=== PATIENT | female | born 1955 | race Two or more races ===

== ENCOUNTER 2024-04-16 13:22 | Emergency (ER) | payer MEDICARE, MEDICAID ==
[2024-04-16 13:45] VITALS: O2SAT 100
--- NOTE | 2024-04-16 14:03 | ED Physician Documentation ---
History of Present Illness - Stated complaint Stated Complaint: L LEG PAIN - Chief complaint Chief Complaint: Ext Problem - History obtained from History obtained from: Patient - History of Present Illness Timing: How many days ago (4) Pain level max: 5 Pain level now: 5 - Additonal information Additional information: Patient is a 68-year-old female who presents to the emergency department with left lower extremity swelling and pain for 4 days. She reports no fall. No trauma. No change in activity. Most of the pain is behind the left knee. No history of blood clots. Took Tylenol this morning for the pain which helped. Does not want any pain medications at this time. No fevers or chills. Review of Systems Constitutional: denies: Fever, Chills GI: denies: Vomiting Skin: denies: Rash Musculoskeletal: denies: Neck pain, Back pain Neurologic: denies: Headache PD PAST MEDICAL HISTORY - Past Medical History Past Medical History: Yes - Allergies Allergies/Adverse Reactions: Allergies Allergy/AdvReac Type Severity Reaction Status Date / Time No Known Drug Allergies Allergy Verified 04/16/24 13:41 - Social History Does the pt smoke?: No Smoking Status: Never smoker Does the pt drink ETOH?: No Does the pt have substance abuse?: No - POLST Patient has POLST: No PD ED PE NORMAL - Vitals Vital signs reviewed: Yes - General General: Alert and oriented X 3, No acute distress, Well developed/nourished - HEENT HEENT: Moist mucous membranes - Cardiac Cardiac: RRR, Strong equal pulses - Respiratory Respiratory: No respiratory distress, Clear bilaterally - Abdomen Abdomen: Soft, Non tender, Non distended - Derm Derm: Warm and dry - Extremities Extremities: No calf tenderness / cord, Other ( ACL, MCL, PCL, LCL are intact. No significant joint effusion. Does have some tenderness on the posterior aspect of the knee. ) - Neuro Neuro: Alert and oriented X 3 - Psych Psych: Normal mood, Normal affect Results - Vitals Vitals: Vital Signs - 24 hr 04/16/24 13:41 Temperature 37.1 C Heart Rate 83 Respiratory 15 Rate Blood Pressure 149/78 H O2 Saturation 100 Oxygen O2 Source Room air - Rads (name of study) L knee xray Relevant Findings:: Final report received, See rad report PD Medical Decision Making - ED course Complexity details: reviewed results, re-evaluated patient, considered differential, d/w patient ED course: 68-year-old female with left knee pain. No acute findings on left knee x-ray, may have a Ambrosio's cyst versus DVT. Ultrasound ordered. At the time of signout, ultrasound is pending. See oncoming emergency department physician's note for follow-up. This document was made in part using voice recognition software. While efforts are made to proofread this document, sound alike and grammatical errors may occ ur. Departure - Departure Clinical Impression: Left knee pain Qualifiers: Chronicity: acute Qualified Code(s): M25.562 - Pain in left knee Condition: Stable Forms: PCP List
--- NOTE | 2024-04-16 14:47 | XRAY Report ---
PROCEDURE: Knee 4+V LT INDICATIONS: L knee pain TECHNIQUE: 4 views of the knee(s) were acquired. COMPARISON: None. FINDINGS: Bones: No fractures or dislocations. Moderate medial and mild lateral and patellofemoral compartment joint space narrowing and juxta-articular osteophytosis. Tricompartmental chondrocalcinosis. Mild la teral patellar tilt and subluxation on the sunrise view. No suspicious bony lesions. Soft tissues: Small knee joint effusion. No suspicious soft tissue calcifications or masses. Curvil inear calcification posterior to the distal femoral condyle and in the suprapatellar recess, best see n on lateral view. Enthesopathy at the distal insertion of the quadriceps tendon. IMPRESSION: 1.No acute bony abnormality. If there remains a high clinical concern for fracture, consider cross-se ctional imaging now. If pain persists, consider repeat x-ray in 10-14 days or cross-sectional imaging . 2.Moderate medial and mild lateral and patellofemoral compartment osteoarthritis. 3.Tricompartmental chondrocalcinosis. 4.Curvilinear calcification posterior to the distal femoral condyle, best seen on the lateral view, m ay reflect chondrocalcinosis within a tendon. Reviewed by: Diego Walker MD on 04/16/2024 1:46 PM LILY Approved by: Diego Walker MD on 04/16/2024 1:46 PM LILY Station ID: [id number]
--- NOTE | 2024-04-16 16:38 | ED Physician Documentation ---
ED Addendum - Addendum Addendum: 04/16/24 16:37 Care I received signout from Dr. Don at 3 PM shift change. See his H&P. Briefly she has knee pain and there was concern for arthritis which she certainly has on x-ray and a ultrasound prelim to me shows an effusion but no DVT or Ambrosio's cyst. I wrote prescriptions for short course of anti-inflammatories and pain medication and she also wanted antibiotics for a bladder infection feeling like she has dysuria and frequency. She appears nontoxic and well on exam. Disposition: Discharged home Condition: Stable Diagnoses: 1. Left leg pain 2. Left knee osteoarthritis with effusion Prescriptions: 1. Macrobid 100 mg p.o. twice daily #10 2. Hydrocodone/APAP 5/325 1-2 every 6 hours as needed pain #15 3. Naproxen 500 mg p.o. twice daily #8
--- NOTE | 2024-04-16 16:59 | Ultrasound Report ---
PROCEDURE: Duplex Ext Veins Left INDICATIONS: LLE swelling, pain TECHNIQUE: Real-time imaging, as well as color and pulse Doppler interrogation, were performed of the lower extr emity deep veins from the inguinal ligament to the popliteal fossa. Attempted visualization of the ca lf veins was performed. COMPARISON: None. FINDINGS: The deep veins are normally compressible, and free of intraluminal thrombus. Color and pu lse Doppler demonstrate normal phasic intraluminal flow. There is normal augmentation response to di stal compression maneuver. Left anterior knee demonstrate an anechoic fluid collection measuring 5.9 x 1.6 x 6.5 cm. There is no internal vascularity. IMPRESSION: 1.No deep venous thrombosis of the visualized lower extremity. 2.Simple fluid collection in the anterior knee measuring 5.9 x 1.6 x 6.5 cm which may represent an ev olving hematoma or seroma. Reviewed by: Diego Walker MD on 04/16/2024 3:57 PM LILY Approved by: Diego Walker MD on 04/16/2024 3:57 PM LILY Station ID: [id number]
[2024-04-16 17:00] VITALS: BP 177/82
== END 2024-04-16 16:54 | disposition home or self-care (01) ==
LOC: ED 13:22
DX: M17.12 Unilateral primary osteoarthritis, left knee (principal); M25.462 Effusion, left knee
CPT/HCPCS: 99283; 99284

== ENCOUNTER 2024-04-18 08:00 | Outpatient (CLI) | payer MEDICARE, MEDICAID ==
[2024-04-18 21:21] LABS: BILIRUBIN,URINE NEGATIVE (NEGATIVE); GLUCOSE, URINE (UA) 100 mg/dL (NEGATIVE); KETONES,URINE (UA) NEGATIVE (NEGATIVE); LEUKOCYTE ESTERASE, URINE NEGATIVE (NEGATIVE); NITRITE,URINE POSITIVE (NEGATIVE); OCCULT BLOOD,URINE NEGATIVE (NEGATIVE); PH,URINE 5.5 PH (5.0-7.5); PROTEIN,URINE NEGATIVE (NEGATIVE); UROBILINOGEN,URINE 1 (NORMAL) E.U./dL (NORMAL)
[2024-04-18 21:25] LABS: CLARITY,URINE HAZY (CLEAR)
[2024-04-18 21:26] LABS: CREATININE,URINE 96.9 mg/dL; MICROALBUM/CREATININE RATIO,UR 44.4 ug/mg (<30.0); MICROALBUMIN,URINE 4.3 mg/dL
[2024-04-18 21:38] LABS: AMORPHOUS SEDIMENT,UR Few /LPF; BACTERIA,URINE Many /HPF (None Seen); RBC,URINE 0-5 /HPF (0-5); SQUAMOUS EPITHELIAL CELL,UR FEW Squamous (<= Few)
== END 2024-04-18 23:59 | disposition home or self-care (01) ==
LOC: LAB.N 08:00
PROVIDERS: ATTEND Nurse Practitioner Family
DX: R10.30 Lower abdominal pain, unspecified (principal); R30.0 Dysuria; E11.69 Type 2 diabetes mellitus with other specified complication
CPT/HCPCS: 81001; 82043; 82570; 87086; 87181

== ENCOUNTER 2025-04-23 10:34 | Inpatient (IN) ==
[2025-04-23] MEDS: cefTRIAXone 2 GM in SODIUM CHLORIDE 0.9% MINIBAG 100 ML IV STA (10:55)
[2025-04-23] MEDS: LACTATED RINGERS 1,000 ML IV STA (11:00)
--- NOTE | 2025-04-23 11:08 | XRAY Report ---
PROCEDURE: XR Chest 1V INDICATIONS: Sepsis TECHNIQUE: One view of the chest was acquired. COMPARISON: 01/01/2025. FINDINGS: Surgical changes and devices: None. Lungs and pleura: No pleural effusions or pneumothorax. No consolidation. Mediastinum: Mediastinal contours appear normal. Heart size is normal. Bones and chest wall: No suspicious bony lesions. Overlying soft tissues appear unremarkable. IMPRESSION: No acute cardiopulmonary process. Reviewed by: Don Hidalgo MD on 04/23/2025 11:06 AM PDT Approved by: Don Hidalgo MD on 04/23/2025 11:06 AM PDT Station ID: [id number]
[2025-04-23] MEDS ORDERED: ONDANSETRON 4 MG/2 ML VIAL ONE (11:18)
[2025-04-23] MEDS: ONDANSETRON 4 MG/2 ML VIAL IVP STA ×2 (11:20→14:17)
[2025-04-23 11:25] LABS: HCT - HEMATOCRIT 35.3 % (37.0-47.0); HGB - HEMOGLOBIN 11.4 g/dL (12.0-16.0); MEAN PLATELET VOLUME 10.3 fL (7.9-10.8); NRBC ABSOLUTE COUNT (AUTO) 0.00 x10^3/uL; NUCLEATED RED BLOOD CELLS AUTO 0.0 /100WBC; PLT - PLATELET COUNT 195 10^3/uL (130-450); RED CELL DISTRIBUTION WIDTH 13.4 % (12.0-15.0)
[2025-04-23 11:38] LABS: ALT ALANINE AMINOTRANSFERASE 7.0 IU/L (10-60); AST ASPARTATE AMINOTRANSFERASE 9.0 IU/L (10-42); BUN - BLOOD UREA NITROGEN 42.0 mg/dL (6-20); CARBON DIOXIDE - CO2 23.0 mmol/L (21-32); CREATININE 1.9 mg/dL (0.6-1.3); GFR - MDRD 26.0 (>89)
[2025-04-23] MEDS: fentaNYL 100 MCG/2 ML VIAL IVP STA ×2 (11:44→14:08)
--- NOTE | 2025-04-23 12:04 | ED Physician Documentation ---
History of Present Illness Stated complaint Stated Complaint: FLANK PX/FEVER/WEAKNESS Chief complaint Chief Complaint: Abd Pain Additonal information Additional information: Patient is a 69-year-old female with history of diabetes not on insulin, hypertension, previous UTI. Patient states that for the last 4 days she has been having intermittent nausea and vomiting as well as fever symptoms. She states that she has been having significant dysuria and pain with urination as well as back pain in bilateral flanks. On arrival she states that she has had similar symptoms the past but never this severe. She is [place]-speaking primarily. Rates her pain currently as an 8 out of 10. Mildly hypotensive on arrival with systolic pressures in the 80s over 50. She did get started on 1 L of fluid in the field. She endorses a mild headache, but denies photophobia, phonophobia, neck pain. She denies any chest pain or shortness of breath. States that she is not had any abnormal vaginal bleeding, vaginal discharge, changes to stools. Review of Systems Status of ROS: See HPI Meds/Allgy Home Medications Ambulatory Orders Medication Instructions Recorded Confirmed glipizide 5 mg tablet 5 mg PO BID Diabetes #180 ta bs 10/11/24 04/23/25 hydrochlorothiazide 25 mg tablet 25 mg PO QAM #90 tabs 10/17/24 04/23/25 lisinopril 40 mg tablet See Rx Instructions .Route 0 10/17/24 04/23/25 .COMPLEX #90 tabs glipizide 2.5 mg tablet 2.5 mg PO BID Diabetes #180 tabs 01/10/25 04/23/25 levothyroxine 88 mcg tablet 88 mcg PO QDAC 04/23/25 (Levoxyl) metformin 1,000 mg tablet 1,000 mg PO DAILY 04/23/25 0 04/23/25 rosuvastatin 10 mg tablet 10 mg PO DAILY high choleste rol 04/23/25 04/23/25 Allergies Allergies Allergy/AdvReac Type Severity Reaction Status Date / Time No Known Drug Allergies Allergy Verified 04/23/25 10:52 PFS Active Problems All Active Problems (Updated 04/23/25 @ 15:45 by MARIE Calhoun) Sepsis (Acute) Acute hypotension (Acute) Pyelonephritis (Acute) Hemorrhoids (Acute) Rectal bleed (Acute) Language barrier affecting health care (Acute) Medication management (Chronic) Hypothyroid (Chronic) Hyperlipemia (Chronic) Essential hypertension (Chronic) Type 2 diabetes mellitus with other specified complication (Chronic) Medical History Medical History Cough Muscle ache Respiratory syncytial virus (RSV) Upper respiratory infection, viral Pleurisy Pneumonia Social History Social History Smoking Status: Smoker current status unk Living arrangement: At home Living Condition: With family Support Person: Yes Level: Independent Do you feel safe in your home environment?: Yes History of physical, verbal, emotional, or financial abuse?: No ETOH Use: None Substance Use: denies use POLST Patient has POLST: No Exam Exam Vital Signs: Vital Signs x48h Temp Pulse Resp BP Pulse Ox 04/23/25 15:39 39.7 C H 107 H 24 124/69 99 04/23/25 15:34 39.8 C H 109 H 25 H 123/74 99 04/23/25 15:29 39.8 C H 108 H 22 131/62 H 98 04/23/25 15:24 39.8 C H 110 H 20 144/75 H 100 04/23/25 15:19 39.7 C H 110 H 26 H 103/85 99 04/23/25 15:14 39.7 C H 117 H 26 H 127/71 96 04/23/25 15:09 39.6 C H 118 H 23 144/83 H 88 L 04/23/25 15:04 39.5 C H 126 H 15 166/114 H 98 04/23/25 15:00 39.5 C H 127 H 24 168/80 H 93 04/23/25 14:54 39.3 C H 126 H 35 H 133/111 H 88 L 04/23/25 14:50 39.1 C H 125 H 37 H 140/115 H 97 04/23/25 14:45 39.0 C H 122 H 27 H 144/94 H 96 04/23/25 14:39 38.8 C H 125 H 28 H 124/99 H 90 L 04/23/25 14:35 38.5 C H 121 H 29 H 163/88 H 85 L 04/23/25 14:30 38.3 C H 118 H 26 H 165/78 H 99 04/23/25 14:24 38.2 C H 114 H 28 H 130/91 H 97 04/23/25 14:21 38.0 C H 108 H 21 158/89 H 97 04/23/25 14:19 38.0 C H 103 H 27 H 170/96 H 98 04/23/25 14:14 37.9 C 100 24 161/88 H 97 04/23/25 14:09 37.8 C 98 22 163/115 H 97 04/23/25 14:04 37.7 C 103 H 18 80/59 L 99 04/23/25 13:59 37.5 C 94 22 157/81 H 99 04/23/25 13:53 37.5 C 93 19 139/75 H 99 04/23/25 13:49 37.5 C 93 04/23/25 13:43 37.4 C 93 24 126/75 97 04/23/25 13:38 37.3 C 88 23 128/71 99 04/23/25 13:33 37.2 C 83 26 H 111/63 97 04/23/25 13:28 36.4 C L 87 22 110/61 96 04/23/25 13:23 36.1 C L 87 22 115/67 95 04/23/25 13:18 86 26 H 131/70 H 99 04/23/25 13:13 85 21 134/69 H 95 04/23/25 13:08 85 20 151/71 H 97 04/23/25 13:06 84 20 148/98 H 99 04/23/25 13:01 88 19 131/67 H 98 04/23/25 12:56 80 21 118/65 97 04/23/25 12:56 81 24 100 04/23/25 12:53 80 15 114/62 100 04/23/25 12:48 80 20 109/58 L 100 04/23/25 12:43 82 24 106/57 L 100 04/23/25 12:38 81 24 128/68 100 04/23/25 12:33 76 23 121/65 100 04/23/25 12:28 76 22 126/69 100 04/23/25 12:23 78 20 138/73 H 98 04/23/25 12:18 79 18 174/86 H 99 04/23/25 12:13 77 22 153/74 H 99 04/23/25 12:10 76 22 90/56 L 99 Constitutional Appears tired, ill, resting in examination bed HENMT oropharynx normal Eyes PERRL, EOMs intact bilaterally, conjunctivae normal, no scleral icterus and normal visual pedraza by confrontation Neck/C-Spine cervical full ROM noted, supple and no meningeal signs Respiratory Clear to auscultation bilaterally, no increased respiratory effort Cardiovascular Heart rate in the 90s, blood pressure 80/50, normal S1-S2, no murmurs. Radial pulses 2+ and symmetric Gastrointestinal Tender to palpation in the suprapubic region as well as bilateral CVA ter ritories. No guarding, no rigidity Extremities normal to inspection Neurology nursing specialist II-XII intact and GCS 15 Psychiatry mental status grossly normal and oriented x3 Results Vitals Vitals: Vital Signs - 24 hr 04/23/25 10:34 04/23/25 10:55 04/23/25 11:12 Temperature 37.8 C Temperature Source Oral Pulse Rate 93 90 92 Respiratory Rate 25 H 17 17 Blood Pressure 80/53 L 88/56 L 86/52 L O2 Saturation 93 92 91 L O2 Source Room air Pain Intensity 8 04/23/25 11:25 04/23/25 11:40 04/23/25 11:44 Temperature Temperature Source Pulse Rate 90 83 Respiratory Rate 26 H 19 Blood Pressure 89/52 L 97/56 L O2 Saturation 90 L 96 O2 Source Pain Intensity 9 04/23/25 11:56 04/23/25 12:10 04/23/25 12:13 Temperature Temperature Source Pulse Rate 81 76 77 Respiratory Rate 19 22 22 Blood Pressure 73/51 L 90/56 L 153/74 H O2 Saturation 96 99 99 O2 Source Pain Intensity 04/23/25 12:18 04/23/25 12:23 04/23/25 12:28 Temperature Temperature Source Pulse Rate 79 78 76 Respiratory Rate 18 20 22 Blood Pressure 174/86 H 138/73 H 126/69 O2 Saturation 99 98 100 O2 Source Pain Intensity 04/23/25 12:33 04/23/25 12:38 04/23/25 12:43 Temperature Temperature Source Pulse Rate 76 81 82 Respiratory Rate 23 24 24 Blood Pressure 121/65 128/68 106/57 L O2 Saturation 100 100 100 O2 Source Pain Intensity 04/23/25 12:48 04/23/25 12:53 04/23/25 12:56 Temperature Temperature Source Pulse Rate 80 80 81 Respiratory Rate 20 15 24 Blood Pressure 109/58 L 114/62 O2 Saturation 100 100 100 O2 Source Pain Intensity 04/23/25 12:56 04/23/25 13:00 04/23/25 13:01 Temperature Temperature Source Pulse Rate 80 88 Respiratory Rate 21 19 Blood Pressure 118/65 131/67 H O2 Saturation 97 98 O2 Source Pain Intensity 3 04/23/25 13:06 04/23/25 13:08 04/23/25 13:13 Temperature Temperature Source Pulse Rate 84 85 85 Respiratory Rate 20 20 21 Blood Pressure 148/98 H 151/71 H 134/69 H O2 Saturation 99 97 95 O2 Source Pain Intensity 04/23/25 13:18 04/23/25 13:23 04/23/25 13:28 Temperature 36.1 C L 36.4 C L Temperature Source Pulse Rate 86 87 87 Respiratory Rate 26 H 22 22 Blood Pressure 131/70 H 115/67 110/61 O2 Saturation 99 95 96 O2 Source Pain Intensity 04/23/25 13:33 04/23/25 13:38 04/23/25 13:43 Temperature 37.2 C 37.3 C 37.4 C Temperature Source Pulse Rate 83 88 93 Respiratory Rate 26 H 23 24 Blood Pressure 111/63 128/71 126/75 O2 Saturation 97 99 97 O2 Source Pain Intensity 04/23/25 13:49 04/23/25 13:53 04/23/25 13:59 Temperature 37.5 C 37.5 C 37.5 C Temperature Source Pulse Rate 93 94 Respiratory Rate 19 22 Blood Pressure 139/75 H 157/81 H O2 Saturation 93 99 99 O2 Source Pain Intensity 04/23/25 14:04 04/23/25 14:08 04/23/25 14:09 Temperature 37.7 C 37.8 C Temperature Source Pulse Rate 103 H 98 Respiratory Rate 18 22 Blood Pressure 80/59 L 163/115 H O2 Saturation 99 97 O2 Source Pain Intensity 8 04/23/25 14:14 04/23/25 14:19 04/23/25 14:21 Temperature 37.9 C 38.0 C H 38.0 C H Temperature Source Pulse Rate 100 103 H 108 H Respiratory Rate 24 27 H 21 Blood Pressure 161/88 H 170/96 H 158/89 H O2 Saturation 97 98 97 O2 Source Pain Intensity 04/23/25 14:24 04/23/25 14:30 04/23/25 14:35 Temperature 38.2 C H 38.3 C H 38.5 C H Temperature Source Pulse Rate 114 H 118 H 121 H Respiratory Rate 28 H 26 H 29 H Blood Pressure 130/91 H 165/78 H 163/88 H O2 Saturation 97 99 85 L O2 Source Pain Intensity 04/23/25 14:39 04/23/25 14:45 04/23/25 14:50 Temperature 38.8 C H 39.0 C H 39.1 C H Temperature Source Pulse Rate 125 H 122 H 125 H Respiratory Rate 28 H 27 H 37 H Blood Pressure 124/99 H 144/94 H 140/115 H O2 Saturation 90 L 96 97 O2 Source Pain Intensity 04/23/25 14:52 04/23/25 14:54 04/23/25 15:00 Temperature 39.3 C H 39.5 C H Temperature Source Pulse Rate 126 H 127 H Respiratory Rate 35 H 24 Blood Pressure 133/111 H 168/80 H O2 Saturation 88 L 93 O2 Source Pain Intensity 3 04/23/25 15:04 04/23/25 15:09 04/23/25 15:14 Temperature 39.5 C H 39.6 C H 39.7 C H Temperature Source Pulse Rate 126 H 118 H 117 H Respiratory Rate 15 23 26 H Blood Pressure 166/114 H 144/83 H 127/71 O2 Saturation 98 88 L 96 O2 Source Pain Intensity 04/23/25 15:19 04/23/25 15:20 04/23/25 15:24 Temperature 39.7 C H 39.8 C H Temperature Source Pulse Rate 110 H 110 H Respiratory Rate 26 H 20 Blood Pressure 103/85 144/75 H O2 Saturation 99 100 O2 Source Pain Intensity 6 04/23/25 15:29 04/23/25 15:34 04/23/25 15:39 Temperature 39.8 C H 39.8 C H 39.7 C H Temperature Source Pulse Rate 108 H 109 H 107 H Respiratory Rate 22 25 H 24 Blood Pressure 131/62 H 123/74 124/69 O2 Saturation 98 99 99 O2 Source Pain Intensity Oxygen O2 Source Room air Labs Labs: Laboratory Tests 04/23/25 04/23/25 04/23/25 11:09 11:16 12:24 WBC 12.8 H RBC 3.91 L Hgb 11.4 L Hct 35.3 L MCV 90.3 MCH 29.2 MCHC 32.3 RDW 13.4 Plt Count 195 MPV 10.3 Neut # (Auto) 11.1 H Lymph # (Auto) 0.9 L Mcmullen # (Auto) 0.7 Eos # (Auto) 0.0 Baso # (Auto) 0.0 Absolute Nucleated RBC 0.00 Nucleated RBC % 0.0 Sodium 132 L Potassium 3.5 Chloride 98 L Carbon Dioxide 23 Anion Gap 11.0 BUN 42 H Creatinine 1.9 H Estimated GFR (MDRD) 26 L Glucose 330 H Lactic Acid 0.9 Calcium 9.0 Total Bilirubin 1.6 H AST 9 L ALT 7 L Alkaline Phosphatase 45 Total Protein 7.2 Albumin 3.8 Globulin 3.4 Albumin/Globulin Ratio 1.1 Procalcitonin Immunoas 13.34 H* Urine Color Urine Clarity Urine pH Ur Specific [place] Urine Protein Urine Glucose (UA) Urine Ketones Urine Occult Blood Urine Nitrite Urine Bilirubin Urine Urobilinogen Ur Leukocyte Esterase Urine RBC Urine WBC Urine WBC Clumps Ur Squamous Epith Cells Amorphous Sediment Urine Bacteria Urine Casts Urine Culture Comments Nasal Adenovirus (PCR) NOT DETECTED Nasal B. parapertussis DNA (PCR) NOT DETECTED Nasal Coronavir 229E PCR NOT DETECTED Nasal Coronavir HKU1 PCR NOT DETECTED Nasal Coronavir NL63 PCR NOT DETECTED Nasal Coronavir OC43 PCR NOT DETECTED Nasal Enterovir/Rhinovir PCR NOT DETECTED Nasal Influenza B PCR NOT DETECTED Nasal Influenza A PCR NOT DETECTED Nasal Parainfluen 1 PCR NOT DETECTED Nasal Parainfluen 2 PCR NOT DETECTED Nasal Parainfluen 3 PCR NOT DETECTED Nasal Parainfluen 4 PCR NOT DETECTED Nasal RSV (PCR) NOT DETECTED Nasal B.pertussis DNA PCR NOT DETECTED Nasal C.pneumoniae (PCR) NOT DETECTED Xander Human Metapneumo PCR NOT DETECTED Nasal M.pneumoniae (PCR) NOT DETECTED Nasal SARS-CoV-2 (PCR) NOT DETECTED 04/23/25 04/23/25 04/23/25 13:26 13:26 13:26 WBC RBC Hgb Hct MCV MCH MCHC RDW Plt Count MPV Neut # (Auto) Lymph # (Auto) Mcmullen # (Auto) Eos # (Auto) Baso # (Auto) Absolute Nucleated RBC Nucleated RBC % Sodium Potassium Chloride Carbon Dioxide Anion Gap BUN Creatinine Estimated GFR (MDRD) Glucose Lactic Acid Calcium Total Bilirubin AST ALT Alkaline Phosphatase Total Protein Albumin Globulin Albumin/Globulin Ratio Procalcitonin Immunoas Urine Color YELLOW Urine Clarity CLEAR Urine pH 6.0 Ur Specific [place] 1.010 Urine Protein 30 H Urine Glucose (UA) >=1000 H Urine Ketones TRACE Urine Occult Blood MODERATE Urine Nitrite NEGATIVE Urine Bilirubin NEGATIVE Urine Urobilinogen 0.2 (NORMAL) Ur Leukocyte Esterase NEGATIVE Urine RBC 11-25 H Urine WBC >25 H Urine WBC Clumps PRESENT Ur Squamous Epith Cells MOD Squamous H Amorphous Sediment Few Urine Bacteria Many H Urine Casts >50 Hyaline Casts >50 Granular Casts 6-10 Cellular Casts Urine Culture Comments NOT INDICATED Nasal Adenovirus (PCR) Nasal B. parapertussis DNA (PCR) Nasal Coronavir 229E PCR Nasal Coronavir HKU1 PCR Nasal Coronavir NL63 PCR Nasal Coronavir OC43 PCR Nasal Enterovir/Rhinovir PCR Nasal Influenza B PCR Nasal Influenza A PCR Nasal Parainfluen 1 PCR Nasal Parainfluen 2 PCR Nasal Parainfluen 3 PCR Nasal Parainfluen 4 PCR Nasal RSV (PCR) Nasal B.pertussis DNA PCR Nasal C.pneumoniae (PCR) Xander Human Metapneumo PCR Nasal M.pneumoniae (PCR) Nasal SARS-CoV-2 (PCR) PD Medical Decision Making ED course ED course: Assessment: Patient is a 69-year-old female with history of type 2 diabetes, hypertension, presenting with 4 days of dysuria, significant abdominal pain, nausea, vomiting today. DDx: Includes but not limited to, UTI, diverticulitis, renal stone, septic stone, pyelonephritis, perinephric abscess, pancreatitis, bowel obstruction, intra-abdominal abscess, etc. Workup: White count 12.8, sodium 132, BUN 42, creatinine 1.9, T. bili 1.6, procalcitonin 13.34. Urine studies with evidence of urinary tract infection. Respiratory panel negative. Chest x-ray per my read with no acute cardiopulmonary process, no evidence of pneumonia or consolidation. CT of abdomen shows evidence of pyelonephritis on the left side with no evidence of stone or hydronephrosis. EKG per my read: Normal sinus rhythm, leftward axis deviation with potential left ventricular hypertrophy. Regular intervals, no malignant ST segment changes. Treatment: Total of 3 L IVF, Rocephin 2 g, IV Tylenol, oral Tylenol, 50 mcg fentanyl x 2, Compazine, Benadryl, Zofran, Toradol. Discussion: This patient was intermittently hypotensive, and on arrival had blood pressures in the 80s over 50s. After giving her 2 L of fluid, she was still refractory and not fluid responsive from a hemodynamic perspective, therefore she was put on norepinephrine. She responded very nicely to 2 of norepinephrine, not requiring increasing doses. I gave her a dose of Rocephin due to concern for urinary source, and ultimately her CT confirmed findings of pyelonephritis. I initially attempted to admit this patient to outside hospital due to our full occupancy of [facility], however a bed did open up and I was able to admit her to the hospitalist here at [facility]. After her third liter of fluid she was able to come off of norepinephrine, and remained stable from a hemodynamic protective. Despite receiving antibiotics, fluids, patient did start having escalating fever throughout her time in the ER, at which point I did give her Toradol as well as IV Tylenol. Critical Care Time(min): 35 Time Includes: Direct patient care, Review records, Reassess patient, Document care, Coordinate care and See progress note Data interpretation: Labs and CXR Procedures included in critical care time: Peripheral IV and Blood draw Discharge Plan Discharge Patient Disposition: 66 [facility] DC/Xfer Condition: Serious Clinical Impression: Pyelonephritis, Acute hypotension Interventions: ED Admission Assessment Last Done: 04/23/25 16:14 Vitals documented within 30 minutes of discharge?: Yes
[2025-04-23] MEDS: NOREPINEPHRINE/0.9 % NS 8 MG/250 ML BAG IV SCH (12:08)
[2025-04-23 13:20] LABS: B. PARAPERTUSSIS- RESP PCR PAN NOT DETECTED; B. PERTUSSIS- RESP PCR PANEL NOT DETECTED; C. PNEUMONIAE- RESP PCR PANEL NOT DETECTED; CORONAVIRUS 229E-RESP PCR NOT DETECTED; CORONAVIRUS HKU1-RESP PCR NOT DETECTED; CORONAVIRUS NL63-RESP PCR NOT DETECTED; CORONAVIRUS OC43-RESP PCR NOT DETECTED; HUMAN METAPNEUMOVIRUS NOT DETECTED; INFLUENZA A- RESP PCR PANEL NOT DETECTED; INFLUENZA B - RESP PCR PANEL NOT DETECTED; M. PNEUMONIAE- RESP PCR PANEL NOT DETECTED; PARAINFLUENZA VIRUS 1 NOT DETECTED; PARAINFLUENZA VIRUS 2 NOT DETECTED; PARAINFLUENZA VIRUS 4 NOT DETECTED; RHINOVIRUS/ENTEROVIRUS NOT DETECTED; RSV- RESP PCR PANEL NOT DETECTED; SARS-CoV-2 -RESP PCR PANEL NOT DETECTED
--- NOTE | 2025-04-23 13:28 | CT Report ---
PROCEDURE: CT Abdomen/Pelvis W INDICATIONS: concern for pyelo, sepsis source CONTRAST: OMNI 300 100ML TECHNIQUE: After the administration of intravenous contrast, a CT scan of the abdomen and pelvis was performed. Images were recorded and evaluated at appropriate window settings. Reformats: coronal and sagittal. For radiation dose reduction, the following was used: automated exposure control, adjustment of mA and/or kV according to patient size. COMPARISON: None. FINDINGS: Image quality: Diagnostic. Lower chest: Unremarkable. Liver: No solid mass. Gallbladder: No radiopaque stones or wall thickening. Biliary tree: No intrahepatic or extrahepatic dilation, accounting for age. Spleen: No splenomegaly. Pancreas: No pancreatic ductal dilation. Adrenals: No adrenal nodule. Kidneys and ureters: Question acute pyelonephritis involving the left kidney. There is ill-defined hypodensity present involving the anterior aspect of the middle pole. Reference axial image 48 of series 2 as a sales donor recruitment representative slice. There is minimal inflammatory change in the adjacent fat. No hydronephrosis. Stomach, bowel and peritoneum: No gastric or small bowel dilation. No abnormal wall thickening. No pathologic free fluid. Moderately advanced sigmoid diverticulosis without CT evidence of acute diverticulitis. Diffuse left colonic diverticulosis. Lymph nodes: No central or retroperitoneal adenopathy. Vessels: No infrarenal aortic aneurysm. Patent portal vein. PELVIS Reproductive organs: Uterus is surgically absent. No adnexal masses. . Bladder: No abnormal wall thickening. Pelvic lymph nodes: No pelvic adenopathy by size criteria. Bones: No aggressive osseous abnormality. Other: Small fat-containing left inguinal hernia. Fat-containing lower abdominal ventral hernia. IMPRESSION: 1. Suspect acute left pyelonephritis. No identified stone. No hydronephrosis. 2. Moderately advanced sigmoid diverticulosis. 3. Uterus is surgically absent Reviewed by: Don Hidalgo MD on 04/23/2025 1:27 PM PDT Approved by: Don Hidalgo MD on 04/23/2025 1:27 PM PDT Station ID: [id number]
[2025-04-23 13:40] LABS: GLUCOSE, URINE (UA) >=1000 mg/dL (NEGATIVE); KETONES,URINE (UA) TRACE mg/dL (NEGATIVE); OCCULT BLOOD,URINE MODERATE (NEGATIVE)
[2025-04-23 13:56] LABS: AMORPHOUS SEDIMENT,UR Few /LPF; SQUAMOUS EPITHELIAL CELL,UR MOD Squamous (<= Few); WBC CLUMPS,URINE PRESENT
[2025-04-23] MEDS: LACTATED RINGERS 1,000 ML IV ONE (14:40)
[2025-04-23] MEDS: PROCHLORPERAZINE 10 MG/2 ML VIAL IVP STA (14:51)
[2025-04-23] MEDS: ACETAMINOPHEN 1,000 MG/100 ML 1,000 MG/100 ML BAG IV ONE (14:51)
[2025-04-23] MEDS: KETOROLAC 15 MG/ML VIAL IVP STA (15:20)
--- NOTE | 2025-04-23 15:54 | HISTORY & PHYSICAL EXAMINATION ---
Chief Complaint Chief Complaint Chief Complaint: "sick for 4 days" History of Present Illness Admitted From Admitted From:: home History Obtained From Records Reviewed: PCP note December this year, ED notes December this . History obtained from: patient History of Present Illness HPI Comment/Other: 69F with PMHx DM, HTN , UTI presents to the ED with complaints of feeling bad. Fever, nausea, vomiting, flank pain bilaterally and dysuria. She has been feeling sick for at least 4 days. Since arriving in the ED has been febrile severeal hours into her course. has been given tylenol and tordol, still with elevated temp. She lives with her son who is currently out of town (Ryder). she asks me to call her other son (Jeison) who lives in [place] to let him know she is in the hospital. She is a primary swedish speaker, but her Emir[place] is such that we are able to communicate well. I did employ the greenskeeper supervisor for code status discussion, and even with that, she initially tells me that she wants to be DNR, then when I "teach back" to her what she told me, she changes her mind and tells me full code. Her PCP is Leticia Cuellar at the [facility]. Meds/Allgy Home Medications Ambulatory Orders Medication Instructions Recorded Confirmed glipizide 5 mg tablet 5 mg PO BID Diabetes #180 ta bs 10/11/24 04/23/25 hydrochlorothiazide 25 mg tablet 25 mg PO QAM #90 tabs 10/17/24 04/23/25 lisinopril 40 mg tablet See Rx Instructions .Route 0 10/17/24 04/23/25 .COMPLEX #90 tabs glipizide 2.5 mg tablet 2.5 mg PO BID Diabetes #180 tabs 01/10/25 04/23/25 levothyroxine 88 mcg tablet 88 mcg PO QDAC 04/23/25 (Levoxyl) metformin 1,000 mg tablet 1,000 mg PO DAILY 04/23/25 0 04/23/25 rosuvastatin 10 mg tablet 10 mg PO DAILY high choleste rol 04/23/25 04/23/25 Allergies Allergies Allergy/AdvReac Type Severity Reaction Status Date / Time No Known Drug Allergies Allergy Verified 04/23/25 10:52 [facility] Active Problems All Active Problems (Updated 04/23/25 @ 21:51 by MARIE Calhoun) Acute kidney injury (Acute) Sepsis (Acute) Acute hypotension (Acute) Pyelonephritis (Acute) Hemorrhoids (Acute) Rectal bleed (Acute) Language barrier affecting health care (Acute) Medication management (Chronic) Hypothyroid (Chronic) Hyperlipemia (Chronic) Essential hypertension (Chronic) Type 2 diabetes mellitus with other specified complication (Chronic) Medical History Medical History Cough Muscle ache Respiratory syncytial virus (RSV) Upper respiratory infection, viral Pleurisy Pneumonia Social History Social History (Updated 04/23/25 @ 20:05 by Rocky Srinivasan MD) Smoking Status: Smoker current status unk Living arrangement: At home Living Condition: With family Support Person: Yes Level: Independent Home Mobility Equipment: Walker Do you feel safe in your home environment?: Yes History of physical, verbal, emotional, or financial abuse?: No ETOH Use: None Substance Use: denies use POLST Patient has POLST: No Review of Systems Status of ROS: 10 or more systems reviewed and unremarkable except as noted in history and below Prior Level of Functionality: tells me that she walks without assistive devices. Son is currently out of town for work. She does not drive, but walks to the market for groceries and is able to fix her own meals. Exam Exam Vital Signs: Vital Signs x48h Temp Pulse Pulse Resp BP BP Pulse Ox 04/23/25 21:10 39.1 C H 04/23/25 21:00 39.1 C H 92 26 H 99/54 L 93 04/23/25 20:00 38.7 C H 91 18 118/66 96 04/23/25 19:00 38.4 C H 87 21 103/58 L 96 04/23/25 18:00 38.5 C H 87 23 116/41 L 97 04/23/25 17:00 39.0 C H 91 21 107/54 L 95 04/23/25 16:25 39.5 C H 97 23 101/56 L 92 04/23/25 16:09 39.6 C H 104 H 22 105/61 98 04/23/25 16:04 39.6 C H 104 H 26 H 95/64 98 04/23/25 15:59 39.6 C H 103 H 26 H 106/59 L 98 04/23/25 15:54 39.7 C H 108 H 20 109/61 99 04/23/25 15:49 39.6 C H 106 H 24 122/62 98 04/23/25 15:44 39.7 C H 106 H 24 121/63 99 04/23/25 15:39 39.7 C H 107 H 24 124/69 99 04/23/25 15:34 39.8 C H 109 H 25 H 123/74 99 04/23/25 15:29 39.8 C H 108 H 22 131/62 H 98 04/23/25 15:24 39.8 C H 110 H 20 144/75 H 100 04/23/25 15:19 39.7 C H 110 H 26 H 103/85 99 04/23/25 15:14 39.7 C H 117 H 26 H 127/71 96 04/23/25 15:09 39.6 C H 118 H 23 144/83 H 88 L 04/23/25 15:04 39.5 C H 126 H 15 166/114 H 98 04/23/25 15:00 39.5 C H 127 H 24 168/80 H 93 04/23/25 14:54 39.3 C H 126 H 35 H 133/111 H 88 L 04/23/25 14:50 39.1 C H 125 H 37 H 140/115 H 97 04/23/25 14:45 39.0 C H 122 H 27 H 144/94 H 96 04/23/25 14:39 38.8 C H 125 H 28 H 124/99 H 90 L 04/23/25 14:35 38.5 C H 121 H 29 H 163/88 H 85 L 04/23/25 14:30 38.3 C H 118 H 26 H 165/78 H 99 04/23/25 14:24 38.2 C H 114 H 28 H 130/91 H 97 04/23/25 14:21 38.0 C H 108 H 21 158/89 H 97 04/23/25 14:19 38.0 C H 103 H 27 H 170/96 H 98 04/23/25 14:14 37.9 C 100 24 161/88 H 97 04/23/25 14:09 37.8 C 98 22 163/115 H 97 04/23/25 14:04 37.7 C 103 H 18 80/59 L 99 04/23/25 13:59 37.5 C 94 22 157/81 H 99 04/23/25 13:53 37.5 C 93 19 139/75 H 99 04/23/25 13:49 37.5 C 93 04/23/25 13:43 37.4 C 93 24 126/75 97 04/23/25 13:38 37.3 C 88 23 128/71 99 Constitutional appears ill HENMT normocephalic poor dentition Eyes conjunctivae normal Neck/C-Spine visual inspection normal Lymph no lymphadenopathy noted Chest inspection of chest normal Respiratory breath sounds equal bilaterally, normal respiratory effort, clear to auscultation bilaterally and no use of accessory muscles Cardiovascular normal heart rate noted Has been periodically tachycardic this afternoon with fevers. Gastrointestinal abdomen normal to inspection, abdomen soft to palpation and nontender to palpation Genitourinary no CVA tenderness Back/Pelvis spine normal to inspection Extremities normal to inspection Neurology pediatric neuropsychologist II-XII intact, speech normal and GCS 15 Psychiatry mental status grossly normal, oriented x3, thought process normal, cooperative and affect normal Skin skin color normal Sepsis Event Note (H) Evaluation Current Stage of Sepsis: Sepsis Possible source of Sepsis: positive Genitourinary Sepsis Criteria Sepsis Criteria: Recorded Temperature greater than 38.3C or Less than 36C, WBC count greater than 12,000 or less than 4000, GAS PIT WORKER: altered consciousness (unrelated to primary neuro pathology) and MAP less than 65 mmHg Conclusion/Plan Problem List (1) Sepsis: Plan: presents to the ED with flank pain and vomiting and weakness. She has been febrile in the ED. She has possible pyelonephritis on CT. she is having dysuria. She does not have any CVA tenderness on exam, with with the elevated WBC, and fever, UA pos, abscense of resp symptoms and hx of recurrent UTI, I think she has sepsis of urinary origin. she has been on and off levophed in the Ed. For that reason, I am going to admit her to the ICU although at the time of admit, her MAP is WNL. She may require pressors again. She has received 2 L of LR in the ED prior to starting pressors. Urine was not cultured from the ED due to presense of mod squamous cells on specimen. I have ordered separate urine culture. I looked at her previous urine cultures, and there is one from one year ago showing henson sensitive E coli. This patient received rocephin in the ED. She remains febrile. she has intermittently needed pressors after appropriate fluid resusitiation. Discussed the patient with Dr Vance, internal medicine attending MD, and he is of the opinion that it would be reasonable to put this patient on carbapenem therapy for her sepsis syndrome. This was ordered on transfer to the ICU. I discussed this patient with Dr Srinivasan in the ED, and agreed to admit her to inpatient status for her sepsis which is likely secondary to pyelonephritis. (2) Pyelonephritis: Plan: CT abd and pelvs shows Possible acute pyelonephritis involving the left kidney. No identified stone. No hydronephrosis. Patient has moderately advanced sigmoid diverticulosis. There is no diverticulitis noted nor is there significant abdominal tenderness. As discussed above I am placing this patient on carbapenem therapy for her sepsis of urinary origin. Urinalysis collected in the emergency department appeared contaminated. I have asked that the nurses here on the floor send a repeat urine culture. Blood cultures are also pending. Although patient's blood pressure is improving significantly since transfer to the intensive care unit she remains febrile. (3) Acute kidney injury: Plan: Secondary to sepsis and pyelonephritis. Also note this patient has diabetes. She had a normal serum creatinine about a month ago. Her creatinine on admission today is 1.9. She will be appropriately rehydrated. I will treat the cause of her sepsis and I anticipate that her kidneys will recover quickly.I will avoid nephrotoxic medications, however this patient is persistently febrile therefore I will use small doses of ibuprofen for fever only. (4) Type 2 diabetes mellitus with other specified complication: Plan: It appears that at home she takes glipizide and metformin. Semaglutide has been prescribed but it does not seem that the patient is taking semaglutide probably due to cost. While she is inpatient will have a goal of less than 180 for her blood sugars we will treat her with sliding scale insulin initially and progressed to long- acting if needed. I have sent hemoglobin A1c with morning labs. Qualifiers: Diabetes mellitus correction insulin use: without correction use Q ualified Code(s): E11.69 - Type 2 diabetes mellitus with other specified complication (5) Essential hypertension: Plan: Chronic. Home antihypertensives held in light of sepsis causing hypotension. Although I do not know exactly what her home meds are, I do not see any beta- blockers listed on the un reconciled lists. (6) Hypothyroid: Plan: Chronic. Will resume home meds when medication reconciliation is complete. Qualifiers: Hypothyroidism type: acquired Qualified Code(s): E03.9 - Hypothyroidism, unspecified (7) Hyperlipemia: Plan: Chronic, will resume home meds when medication reconciliation is complete. Qualifiers: Hyperlipidemia type: mixed hyperlipidemia Qualified Code(s): E78.2 - Mixed hyperlipidemia Plan I have spent 85 minutes in the care of this patient today. This includes time [id number], review and ordering of diagnostic imaging and laboratory studies and consultation with other providers. Monitoring the patient's signs symptoms, evaluation of medication effectiveness and patient's response to treatment. Lab Results Lab results reviewed: Yes 04/23/25 11:09 04/23/25 11:09 Core Measures Anticipated LOS I expect patient to be DC'd or transferred within 96 hours.: Yes DVT/VTE - Prophylaxis VTE/DVT Device ordered at admit?: Yes VTE/DVT Prophylaxis med ordered at admit?: Yes
[2025-04-23] MEDS ORDERED: HYDROmorphone 0.5 MG/0.5 ML SYRINGE IVP PRN (16:25)
[2025-04-23] MEDS: SODIUM CHLORIDE 0.9% 1,000 ML IV SCH (16:54)
[2025-04-23] MEDS: MEROPENEM 1 GM VIAL IVP SCH (16:54)
[2025-04-23] MEDS: SODIUM CHLORIDE FLUSH 0.9% 10 ML SYRINGE IVP SCH (16:55)
[2025-04-23] MEDS: MEROPENEM 1 GM in SODIUM CHLORIDE 0.9% MINIBAG 100 ML IV SCH (17:31)
--- NOTE | 2025-04-23 18:34 | PHARMACY PROGRESS NOTE ---
Best Possible Medication History Admit Date and Time: 04/23/25 1543 Home Medications Medication Instructions Recorded Confirmed Type glipizide 5 mg tablet 5 mg PO BID Diabetes #180 ta bs 10/11/24 04/23/25 Rx hydrochlorothiazide 25 mg tablet 25 mg PO QAM #90 tabs 10/17/24 04/23/25 Rx lisinopril 40 mg tablet See Rx Instructions .Route 0 10/17/24 04/23/25 Rx .COMPLEX #90 tabs glipizide 2.5 mg tablet 2.5 mg PO BID Diabetes #180 tabs 01/10/25 04/23/25 Rx levothyroxine 88 mcg tablet 88 mcg PO QDAC 04/23/25 History (Levoxyl) metformin 1,000 mg tablet 1,000 mg PO DAILY 04/23/25 0 04/23/25 History rosuvastatin 10 mg tablet 10 mg PO DAILY high choleste rol 04/23/25 04/23/25 H istory Processed by: Pharmacy (Medication reconciliation completed by Supervisory ForesterLilliana) Medications reviewed in ED?: No Medication History completed: Yes Patient Interview: Pt unable to participate (able to tell us which medications she is not taking, but unable to confirm those that she is taking.) Secondary Source(s): Pharmacy records (Called and spoke with patient's pharmacy to confirm fill/pickup history) and Insurance records [facility] Statement: As the person ultimately responsible for medication therapy, providers are able to order a medication from an existing home medication list in [facility] via the "Reconcile Routine" prior to Confirmation of that medication by instructional support services director. Such practice is discouraged except when the physician, in their clinical judgment, deems that a medical need exists for a medication without regard to previous use.
[2025-04-23] MEDS: oxyCODONE 5 MG TABLET PO PRN (19:51)
[2025-04-23] MEDS: ACETAMINOPHEN 325 MG TABLET PO PRN (19:51)
[2025-04-23] MEDS: SODIUM CHLORIDE FLUSH 0.9% 10 ML SYRINGE IVP PRN (19:52)
[2025-04-23] MEDS: INSULIN GLARGINE-YFGN 300 UNIT/3 ML PEN SUBQ SCH (21:07)
[2025-04-23] MEDS: INSULIN LISPRO 300 UNIT/3 ML PEN SUBQ SCH (21:07)
[2025-04-24] MEDS: IBUPROFEN 400 MG TABLET PO PRN (05:04)
[2025-04-24 05:12] LABS: HCT - HEMATOCRIT 34.5 % (37.0-47.0); HGB - HEMOGLOBIN 11.3 g/dL (12.0-16.0); MEAN PLATELET VOLUME 10.6 fL (7.9-10.8); NRBC ABSOLUTE COUNT (AUTO) 0.00 x10^3/uL; NUCLEATED RED BLOOD CELLS AUTO 0.0 /100WBC; PLT - PLATELET COUNT 162 10^3/uL (130-450); RED CELL DISTRIBUTION WIDTH 13.4 % (12.0-15.0)
[2025-04-24 05:24] LABS: BUN - BLOOD UREA NITROGEN 30.0 mg/dL (6-20); CARBON DIOXIDE - CO2 22.0 mmol/L (21-32); CREATININE 1.2 mg/dL (0.6-1.3); GFR - MDRD 45.0 (>89)
[2025-04-24] MEDS: ENOXAPARIN 30 MG/0.3 ML SYRINGE SUBQ SCH (08:05)
[2025-04-24 09:39] LABS: ESTIMATED AVERAGE GLUCOSE 214 mg/dL (70-100); HEMOGLOBIN A1c% 9.1 % (4.27-6.07)
--- NOTE | 2025-04-24 19:34 | ADVANCE CARE PLANNING NOTE ---
Advance Care Planning Planning Encounter Date: 04/24/25 Purpose: Discussion with son brought up potential issues with surrogate decision maker, should this patient need one. Parties in Attendance: Yenny Novak PA-C, RN Beverley Kearns, Patient. Decisional Capacity of the Patient: alert and oriented w insight into her situation. Diagnosis for Encounter (1) Sepsis: (2) Pyelonephritis: (3) Acute kidney injury: (4) Type 2 diabetes mellitus with other specified complication: Qualifiers: Diabetes mellitus exterminator insulin use: without exterminator use Qualified Code(s): E11.69 - Type 2 diabetes mellitus with other specified complication (5) Essential hypertension: (6) Hypothyroid: Qualifiers: Hypothyroidism type: acquired Qualified Code(s): E03.9 - Hypothyroidism, unspecified (7) Hyperlipemia: Qualifiers: Hyperlipidemia type: mixed hyperlipidemia Qualified Code(s): E78.2 - Mixed hyperlipidemia Encounter Subjective/Patient's Story: yesterday, code status clarified with the assistance of accounts receivable specialist. AT times this patient seemed somewhat confused to me, and not completely able to participate. no family at bedside. I had left a voice mail with one of the sons (Jeison) at patient request, and he did not call me back. Today when I come into the room, she is on the phone with him, and she invites me to speak with him. He is able to relate to me that although son Ryder lives here in town, there have been some disagreements and patient has moved out on her own. She has been here in [place] for about a year, she loves it here, but is not getting the support she needs from her son. She was sick at home for days. Was trying to take the bus to get to the hospital when someone called EMS. She has a great deal of sadness over how things have gone for her here. [place], but she cannot rely on her son, and thus may need to go back down to the [place] area where her two other sons are, so that she may get the support that she needs. Objective/Medical Story: recurrent UTI w progression this time to pyelonephritis and KATHY due to sepsis. She is in the ICU on levophed. She is improving. poorly controlled DM, some difficulty with affording meds. Also, there may be issues with healthy meals. She is living is a studio apartment and walking to the store for food. Goals of Care: Full code, full care. She would like her son Dio to be her surrogate decision maker. PAtient and I completed a POLST designating this today. Plan: May need SNF at [place]. not yet PT appropriate. May need social work intervention to make sure that APS referral is not appropriate. Additional Discussion: Son Jeison was not a part of this discussion, but rather the discussion that led to it. He was able to bring up some issues that I think the patient was not bringing to our attention, which in turn allowed her to be more forthright about her current social situation and needs. Code Status: Attempt Resuscitation Time spent on advance care plannin min.
--- NOTE | 2025-04-24 19:34 | PROVIDER PROGRESS NOTE ---
Subjective Prog Note Date Prog Note Date: 04/24/25 Subjective Subjective: She is feeling so much better than yesterday. I think that she is surprised at how sick she became, and is relieved that she is better now. Current Medications Current Medications Current Medications: Current Medications Generic Name Dose Route Start Last Admin Trade Name Freq PRN Reason Stop Dose Admin Acetaminophen 650 mg 04/23/25 16:25 04/24/25 17:54 Acetaminophen 325 Mg Tablet PO 650 mg Q4HR PRN Administration Pain 1 to 4, or Fever Enoxaparin Sodium 40 mg 04/25/25 09:00 Enoxaparin 40 Mg/0.4 Ml Syringe SUBQ DAILY ZOE Hydromorphone HCl 0.5 mg 04/23/25 16:25 Hydromorphone 0.5 Mg/0.5 Ml Syringe IVP Q2H PRN Pain 8 to 10 Norepinephrine/Sodium Chloride 8 mg in 250 mls @ 15 mls/hr 04/23/25 12:00 04/24/25 15:20 Levophed 8 Mg/250-0.9% Nacl IV 0 mcg/min .[id number] ZOE 0 mls/hr Protocol Titration 8 MCG/MIN Sodium Chloride 1,000 mls @ 100 mls/hr 04/23/25 16:25 04/24/25 13:05 Normal Saline 0.9% IV 100 mls/hr .Q10H ZOE Administration Ibuprofen 400 mg 04/23/25 20:58 04/24/25 14:29 Ibuprofen 400 Mg Tablet PO 400 mg Q6HR PRN Administration FEVER > 100.5 F Insulin Glargine-yfgn 10 unit 04/23/25 21:00 04/23/25 21:07 Insulin Glargine-Yfgn 300 Unit/3 Ml Pen SUBQ 10 unit QPM ZOE Administration Insulin Human Lispro 1 - 5 unit 04/23/25 21:00 04/24/25 16:47 Insulin Lispro 300 Unit/3 Ml Pen SUBQ 1 unit 0800,1200,1700,2100 ZOE Administration Protocol Meropenem 1 gm 04/23/25 16:30 04/24/25 16:47 Meropenem 1 Gm Vial IVP 1 gm Q12H ZOE Administration Oxycodone HCl 5 mg 04/23/25 16:25 04/23/25 19:51 Oxycodone 5 Mg Tablet PO 5 mg Q4HR PRN Administration Pain 5 to 7 Prochlorperazine Edisylate 10 mg 04/23/25 16:25 Prochlorperazine 10 Mg/2 Ml Vial IVP Q6HR PRN Nausea / Vomiting Sodium Chloride 10 ml 04/23/25 17:00 04/24/25 16:47 Sodium Chloride Flush 0.9% 10 Ml Syringe IVP 10 ml 0100,0900,1700 ZOE Administration Sodium Chloride 10 ml 04/23/25 16:25 04/23/25 19:52 Sodium Chloride Flush 0.9% 10 Ml Syringe IVP 10 ml PRN PRN Administration NEEDED PER PROVIDER ORDERS Sterile Water 20 ml 04/23/25 16:30 04/24/25 16:47 Water For Injection,Sterile 10 Ml Vial MC 20 ml Q12H ZOE Administration Objective Vital Signs/Intake & Output Reviewed Vital Signs: Yes Vital Signs: Vital Signs x48h Temp Pulse Resp BP Pulse Ox 04/24/25 19:00 38.2 C H 82 21 97/61 97 04/24/25 18:00 38.2 C H 84 28 H 84/55 L 95 04/24/25 17:00 38.3 C H 80 17 134/85 H 95 04/24/25 16:00 38.5 C H 82 31 H 109/65 94 04/24/25 15:00 81 29 H 111/75 95 04/24/25 14:03 38.4 C H 04/24/25 14:00 38.4 C H 81 22 137/70 H 94 04/24/25 13:00 38.0 C H 81 22 97/57 L 97 04/24/25 12:00 37.8 C 74 19 98/59 L 98 Intake & Output: Intake & Output 04/21/25 04/22/25 04/23/25 04/24/25 23:59 23:59 23:59 23:59 Intake Total 2500 / 2500 2761 / 2761 Output Total 865 / 865 1245 / 1245 Balance 1635 / 1635 1516 / 1516 Weight (kg) 70 kg 69 kg Objective General Appearance: positive No acute distress and Alert Eyes Bilateral: positive Normal inspection ENT: positive ENT inspection nml Neck: positive Nml inspection Respiratory: positive No respiratory distress and Breath sounds nml Cardiovascular: positive Regular rate & rhythm Abdomen: positive Non-tender and No distention Back: positive Nml inspection Skin: positive Color nml Extremities: positive Non-tender and No pedal edema Neurologic/Psychiatric: positive Oriented x3 Lab Results 04/24/25 04:25 04/24/25 04:25 Other Labs: Lab Results x24hrs 04/24/25 04/24/25 04/24/25 Range/Units 16:50 11:54 07:41 WBC (4.8-10.8) x10^3/uL RBC (4.20-5.40) 10^6/uL Hgb (12.0-16.0) g/dL Hct (37.0-47.0) % MCV (81.0-99.0) fL MCH (27.0-31.0) pg MCHC (32.0-36.0) g/dL RDW (12.0-15.0) % Plt Count (130-450) 10^3/uL MPV (7.9-10.8) fL Neut # (Auto) (1.5-6.6) 10^3/uL Lymph # (Auto) (1.5-3.5) 10^3/uL Owen # (Auto) (0.0-1.0) 10^3/uL Eos # (Auto) (0.0-0.7) 10^3/uL Baso # (Auto) (0.0-0.1) 10^3/uL Absolute Nucleated RBC x10^3/uL Nucleated RBC % /100WBC Sodium (135-145) mmol/L Potassium (3.5-4.5) mmol/L Chloride (101-111) mmol/L Carbon Dioxide (21-32) mmol/L Anion Gap (6-13) BUN (6-20) mg/dL Creatinine (0.6-1.3) mg/dL Estimated GFR (MDRD) (>89) Glucose (74-104) mg/dL POC Whole Bld Glucose 167 174 220 (70-100) mg/dL Estimat Average Glucose (70-100) mg/dL Hemoglobin A1c % (4.27-6.07) % Calcium (8.5-10.3) mg/dL Nasal Screen MRSA (PCR) (NEGATIVE) 04/24/25 04/23/25 04/23/25 Range/Units 04:25 20:45 16:30 WBC 9.7 (4.8-10.8) x10^3/uL RBC 3.78 L (4.20-5.40) 10^6/uL Hgb 11.3 L (12.0-16.0) g/dL Hct 34.5 L (37.0-47.0) % MCV 91.3 (81.0-99.0) fL MCH 29.9 (27.0-31.0) pg MCHC 32.8 (32.0-36.0) g/dL RDW 13.4 (12.0-15.0) % Plt Count 162 (130-450) 10^3/uL MPV 10.6 (7.9-10.8) fL Neut # (Auto) 8.6 H (1.5-6.6) 10^3/uL Lymph # (Auto) 0.6 L (1.5-3.5) 10^3/uL Owen # (Auto) 0.4 (0.0-1.0) 10^3/uL Eos # (Auto) 0.0 (0.0-0.7) 10^3/uL Baso # (Auto) 0.1 (0.0-0.1) 10^3/uL Absolute Nucleated RBC 0.00 x10^3/uL Nucleated RBC % 0.0 /100WBC Sodium 135 (135-145) mmol/L Potassium 3.5 (3.5-4.5) mmol/L Chloride 106 (101-111) mmol/L Carbon Dioxide 22 (21-32) mmol/L Anion Gap 7.0 (6-13) BUN 30 H (6-20) mg/dL Creatinine 1.2 (0.6-1.3) mg/dL Estimated GFR (MDRD) 45 L (>89) Glucose 228 H (74-104) mg/dL POC Whole Bld Glucose 188 (70-100) mg/dL Estimat Average Glucose 214 H (70-100) mg/dL Hemoglobin A1c % 9.1 H (4.27-6.07) % Calcium 8.0 L (8.5-10.3) mg/dL Nasal Screen MRSA (PCR) NEGATIVE (NEGATIVE) Other Results/Comments Other Results/Comments: urine culture pending (sent after abx, may be neg) Blood culture positive for E coli with likely ESBL all blood cultures are growning GN Bacilli. ABX Reporting Has patient been on IV antibiotics over the past 48 hours?: Yes Sepsis Event Note (H) Evaluation Current Stage of Sepsis: Sepsis Possible source of Sepsis: positive Genitourinary Sepsis Criteria Sepsis Criteria: Recorded Temperature greater than 38.3C or Less than 36C and MAP less than 65 mmHg Assessment/Plan Problem List (1) Sepsis: Impression: presents to the ED with flank pain and vomiting and weakness. She has been febrile in the ED. She has possible pyelonephritis on CT. being treated with meropenem. She has been intermittently febrile but less so today. She is needing intermittent low dose levophed. She is eating some today, and sipping on fluids. no vomiting. cultures are indicative that we should continue meropenum. She is growing GN bacilli in her blood. PCR indicates likely ESBL species. Selected Entries 04/24/25 07:00 04/24/25 08:00 04/24/25 09:00 Temperature 37.6 C Blood Pressure [Right Brachial artery] 109/58 L 102/55 L 104/52 L 04/24/25 10:00 04/24/25 11:00 04/24/25 12:00 Temperature 37.3 C 37.4 C 37.8 C Blood Pressure [Right Brachial artery] 114/65 89/55 L 98/59 L 04/24/25 13:00 04/24/25 14:00 04/24/25 14:03 Temperature 38.0 C H 38.4 C H 38.4 C H Blood Pressure [Right Brachial artery] 97/57 L 137/70 H 04/24/25 15:00 04/24/25 16:00 04/24/25 17:00 Temperature 38.5 C H 38.3 C H Blood Pressure [Right Brachial artery] 111/75 109/65 134/85 H 04/24/25 18:00 04/24/25 19:00 04/24/25 20:00 Temperature 38.2 C H 38.2 C H 38.0 C H Blood Pressure [Right Brachial artery] 84/55 L 97/61 112/77 Vital signs and the need for pressors albeit intermittent indicate the need for continued ICU level of care. (2) Pyelonephritis: Impression: vomiting has stopped. fevers persist , but less. urine culture are pending, but with blood cultures showing positive, will treat based on those. The source for positive blood cx is most certainly . (3) Acute kidney injury: Impression: quickly resolved with hydration and treatment of her sepsis. trending to baseline. I have ordered BMP for the AM. Laboratory Tests 03/22/25 04/23/25 04/24/25 14:12 11:09 04:25 Creatinine 0.89 1.9 H 1.2 (4) Type 2 diabetes mellitus with other specified complication: Impression: not well controlled. May have difficulty affording appropriate diet and problems with affording meds. Her sugars have been high here but coming down with treatment of her infection. Aiming for less than 180 in this environment. Laboratory Tests 04/23/25 04/23/25 04/24/25 16:41 20:45 04:25 POC Whole Bld Glucose 172 188 Hemoglobin A1c % 9.1 H 04/24/25 04/24/25 04/24/25 07:41 11:54 16:50 POC Whole Bld Glucose 220 174 167 Hemoglobin A1c % Dependent on dc disposition (I am suspicious she will need SNF), may need further outpatient services and SW consult for meds. Qualifiers: Diabetes mellitus medical terminologist insulin use: without [facility] use Q ualified Code(s): E11.69 - Type 2 diabetes mellitus with other specified complication (5) Essential hypertension: Impression: Still on intermittent levophed. hold antihypertensives for now. (6) Hypothyroid: Impression: home meds restarted. Qualifiers: Hypothyroidism type: acquired Qualified Code(s): E03.9 - Hypothyroidism, unspecified (7) Hyperlipemia: Impression: home meds restarted. This patient's diagnosis and treatment plan was discussed this AM with attending physician as a part of multi disciplinary rounding meeting. I have spent 51 minutes in the care of this patient today. This includes time [id number], review and ordering of diagnostic imaging and laboratory studies. Monitoring the patient's signs symptoms, evaluation of medication effectiveness and patient's response to treatment. Qualifiers: Hyperlipidemia type: mixed hyperlipidemia Qualified Code(s): E78.2 - Mixed hyperlipidemia
[2025-04-24] MEDS: PROCHLORPERAZINE 10 MG/2 ML VIAL IVP PRN (20:24)
[2025-04-24] MEDS: ATORVASTATIN 10 MG TABLET PO SCH (20:51)
[2025-04-25 04:21] LABS: HCT - HEMATOCRIT 37.6 % (37.0-47.0); HGB - HEMOGLOBIN 11.9 g/dL (12.0-16.0); MEAN PLATELET VOLUME 10.7 fL (7.9-10.8); NRBC ABSOLUTE COUNT (AUTO) 0.00 x10^3/uL; NUCLEATED RED BLOOD CELLS AUTO 0.0 /100WBC; PLT - PLATELET COUNT 158 10^3/uL (130-450); RED CELL DISTRIBUTION WIDTH 13.3 % (12.0-15.0)
[2025-04-25 04:35] LABS: BUN - BLOOD UREA NITROGEN 23.0 mg/dL (6-20); CARBON DIOXIDE - CO2 22.0 mmol/L (21-32); CREATININE 1.0 mg/dL (0.6-1.3); GFR - MDRD 55.0 (>89)
[2025-04-25] MEDS: LEVOTHYROXINE 88 MCG TABLET PO SCH (06:44)
[2025-04-25] MEDS: ENOXAPARIN 40 MG/0.4 ML SYRINGE SUBQ SCH (08:40)
[2025-04-25] MEDS ORDERED: ROSUVASTATIN 10 MG PO SCH (09:00)
--- NOTE | 2025-04-25 13:38 | PROVIDER PROGRESS NOTE ---
Subjective Prog Note Date Prog Note Date: 04/25/25 Subjective Pt reports feeling: Improved Current Medications Current Medications Current Medications: Current Medications Generic Name Dose Route Start Last Admin Trade Name Freq PRN Reason Stop Dose Admin Acetaminophen 650 mg 04/23/25 16:25 04/25/25 04:30 Acetaminophen 325 Mg Tablet PO 650 mg Q4HR PRN Administration Pain 1 to 4, or Fever Atorvastatin Calcium 20 mg 04/24/25 21:00 04/24/25 20:51 Atorvastatin 10 Mg Tablet PO 20 mg QPM ZOE Administration Enoxaparin Sodium 40 mg 04/25/25 09:00 04/25/25 08:40 Enoxaparin 40 Mg/0.4 Ml Syringe SUBQ 40 mg DAILY ZOE Administration Hydromorphone HCl 0.5 mg 04/23/25 16:25 Hydromorphone 0.5 Mg/0.5 Ml Syringe IVP Q2H PRN Pain 8 to 10 Sodium Chloride 1,000 mls @ 100 mls/hr 04/23/25 16:25 04/25/25 08:40 Normal Saline 0.9% IV 100 mls/hr .Q10H ZOE Administration Ibuprofen 400 mg 04/23/25 20:58 04/25/25 06:44 Ibuprofen 400 Mg Tablet PO 400 mg Q6HR PRN Administration FEVER > 100.5 F Insulin Glargine-yfgn 10 unit 04/23/25 21:00 04/24/25 20:51 Insulin Glargine-Yfgn 300 Unit/3 Ml Pen SUBQ 10 unit QPM ZOE Administration Insulin Human Lispro 1 - 5 unit 04/23/25 21:00 04/25/25 11:56 Insulin Lispro 300 Unit/3 Ml Pen SUBQ 4 unit 0800,1200,1700,2100 ZOE Administration Protocol Levothyroxine Sodium 88 mcg 04/25/25 07:00 04/25/25 06:44 Levothyroxine 88 Mcg Tablet PO 88 mcg QDAC ZOE Administration Meropenem 1 gm 04/23/25 16:30 04/25/25 04:11 Meropenem 1 Gm Vial IVP 1 gm Q12H ZOE Administration Oxycodone HCl 5 mg 04/23/25 16:25 04/23/25 19:51 Oxycodone 5 Mg Tablet PO 5 mg Q4HR PRN Administration Pain 5 to 7 Polyethylene Glycol 17 gm 04/25/25 09:00 04/25/25 08:41 Polyethylene Glycol 3350 17 Gm Packet PO 17 gm DAILY ZOE Administration Prochlorperazine Edisylate 10 mg 04/23/25 16:25 04/24/25 20:24 Prochlorperazine 10 Mg/2 Ml Vial IVP 10 mg Q6HR PRN Administration Nausea / Vomiting Sodium Chloride 10 ml 04/23/25 17:00 04/25/25 08:47 Sodium Chloride Flush 0.9% 10 Ml Syringe IVP Not Given 0100,0900,1700 OZE Sodium Chloride 10 ml 04/23/25 16:25 04/23/25 19:52 Sodium Chloride Flush 0.9% 10 Ml Syringe IVP 10 ml PRN PRN Administration NEEDED PER PROVIDER ORDERS Sterile Water 20 ml 04/23/25 16:30 04/25/25 04:11 Water For Injection,Sterile 10 Ml Vial MC 20 ml Q12H ZOE Administration Objective Vital Signs/Intake & Output Reviewed Vital Signs: Yes Vital Signs: Vital Signs x48h Temp Pulse Resp BP Pulse Ox 04/25/25 13:00 37.6 C 77 27 H 110/65 98 04/25/25 12:00 37.4 C 73 19 91/71 99 04/25/25 11:00 37.3 C 71 26 H 87/59 L 99 04/25/25 10:00 37.6 C 79 24 105/67 98 04/25/25 09:00 37.7 C 76 23 111/62 97 04/25/25 08:00 37.9 C 75 21 114/63 98 04/25/25 07:00 38.4 C H 80 23 123/70 98 04/25/25 06:00 38.5 C H 82 29 H 135/73 H 96 Intake & Output: Intake & Output 04/22/25 04/23/25 04/24/25 04/25/25 23:59 23:59 23:59 23:59 Intake Total 2500 / 2500 3761 / 3761 1143 / 1143 Output Total 865 / 865 1371 / 1371 767 / 767 Balance 1635 / 1635 2390 / 2390 376 / 376 Weight (kg) 70 kg 69 kg 70 kg Objective General Appearance: positive No acute distress and Alert Eyes Bilateral: positive Normal inspection ENT: positive ENT inspection nml Neck: positive Nml inspection Respiratory: positive No respiratory distress and Breath sounds nml Cardiovascular: positive Regular rate & rhythm Abdomen: positive Non-tender and No distention Back: positive Nml inspection Skin: positive Color nml Extremities: positive Non-tender and No pedal edema Neurologic/Psychiatric: positive Oriented x3 Lab Results 04/25/25 04:16 04/25/25 04:16 Other Labs: Lab Results x24hrs 04/25/25 04/25/25 04/25/25 Range/Units 11:39 08:18 04:16 WBC 6.0 (4.8-10.8) x10^3/uL RBC 4.06 L (4.20-5.40) 10^6/uL Hgb 11.9 L (12.0-16.0) g/dL Hct 37.6 (37.0-47.0) % MCV 92.6 (81.0-99.0) fL MCH 29.3 (27.0-31.0) pg MCHC 31.6 L (32.0-36.0) g/dL RDW 13.3 (12.0-15.0) % Plt Count 158 (130-450) 10^3/uL MPV 10.7 (7.9-10.8) fL Neut # (Auto) 4.8 (1.5-6.6) 10^3/uL Lymph # (Auto) 0.6 L (1.5-3.5) 10^3/uL Mower # (Auto) 0.5 (0.0-1.0) 10^3/uL Eos # (Auto) 0.1 (0.0-0.7) 10^3/uL Baso # (Auto) 0.0 (0.0-0.1) 10^3/uL Absolute Nucleated RBC 0.00 x10^3/uL Nucleated RBC % 0.0 /100WBC Sodium 138 (135-145) mmol/L Potassium 3.8 (3.5-4.5) mmol/L Chloride 110 (101-111) mmol/L Carbon Dioxide 22 (21-32) mmol/L Anion Gap 6.0 (6-13) BUN 23 H (6-20) mg/dL Creatinine 1.0 (0.6-1.3) mg/dL Estimated GFR (MDRD) 55 L (>89) Glucose 125 H (74-104) mg/dL POC Whole Bld Glucose 281 172 (70-100) mg/dL Calcium 7.9 L (8.5-10.3) mg/dL 04/24/25 04/24/25 Range/Units 20:41 16:50 WBC (4.8-10.8) x10^3/uL RBC (4.20-5.40) 10^6/uL Hgb (12.0-16.0) g/dL Hct (37.0-47.0) % MCV (81.0-99.0) fL MCH (27.0-31.0) pg MCHC (32.0-36.0) g/dL RDW (12.0-15.0) % Plt Count (130-450) 10^3/uL MPV (7.9-10.8) fL Neut # (Auto) (1.5-6.6) 10^3/uL Lymph # (Auto) (1.5-3.5) 10^3/uL Mower # (Auto) (0.0-1.0) 10^3/uL Eos # (Auto) (0.0-0.7) 10^3/uL Baso # (Auto) (0.0-0.1) 10^3/uL Absolute Nucleated RBC x10^3/uL Nucleated RBC % /100WBC Sodium (135-145) mmol/L Potassium (3.5-4.5) mmol/L Chloride (101-111) mmol/L Carbon Dioxide (21-32) mmol/L Anion Gap (6-13) BUN (6-20) mg/dL Creatinine (0.6-1.3) mg/dL Estimated GFR (MDRD) (>89) Glucose (74-104) mg/dL POC Whole Bld Glucose 190 167 (70-100) mg/dL Calcium (8.5-10.3) mg/dL Other Results/Comments Other Results/Comments: Urine cultures positive for pansensitive E. coli, blood cultures positive for ESBL Sepsis Event Note (H) Evaluation Current Stage of Sepsis: Sepsis Possible source of Sepsis: positive Genitourinary Sepsis Criteria Sepsis Criteria: Recorded Temperature greater than 38.3C or Less than 36C and MAP less than 65 mmHg Assessment/Plan Problem List (1) Sepsis: Impression: Met sepsis criteria with elevated WBC, fever, tachycardia This is due to urinary source Urine cultures positive for E. coli, blood cultures positive for ESBL She has been in the ICU for septic shock requiring intermittent Levophed She is still having intermittent fevers Her WBC has improved to normal Continue meropenem, Today is day 3 Although some sources suggest that gram-negative bacteremia can be transition to p.o. early, patient is still having fevers and hypotension. Anticipate maintaining on Merrem for 7-day total course and then likely transition to oral for an additional 7 days (2) Pyelonephritis: Impression: Antibiotics as above (3) Acute kidney injury: Impression: CR 1.9 on presentation, likely from sepsis. CR 1 today. Resolved, continue daily BMP (4) Type 2 diabetes mellitus with other specified complication: Impression: A1c 9.1 Managed with glipizide and metformin at home Concern has been raised about compliance with diet and existing antidiabetic regimen due to financial factors She received 9 units SSI on top of her 10 units of long-acting insulin in the past 24 hours. Overall, her blood sugar appears to be under better control. It was 125 with morning labs, 172 with breakfast. It was elevated at 281 with lunch, will watch this for another day to see if she needs an increased dose of basal insulin Qualifiers: Diabetes mellitus senior care insulin use: without senior care use Q ualified Code(s): E11.69 - Type 2 diabetes mellitus with other specified complication (5) Essential hypertension: Impression: Off Levophed since 3 AM today. If BP maintains, will transfer out of ICU later today. Holding home dose antihypertensives (6) Hypothyroid: Impression: home meds restarted. Qualifiers: Hypothyroidism type: acquired Qualified Code(s): E03.9 - Hypothyroidism, unspecified (7) Hyperlipemia: Impression: home meds restarted. Qualifiers: Hyperlipidemia type: mixed hyperlipidemia Qualified Code(s): E78.2 - Mixed hyperlipidemia
[2025-04-25] MEDS: MEROPENEM 1 GM VIAL IVP SCH (14:47)
[2025-04-25] MEDS: INSULIN LISPRO 300 UNIT/3 ML PEN SUBQ SCH (16:57)
[2025-04-26 04:53] LABS: HCT - HEMATOCRIT 31.3 % (37.0-47.0); HGB - HEMOGLOBIN 10.3 g/dL (12.0-16.0); MEAN PLATELET VOLUME 10.4 fL (7.9-10.8); NRBC ABSOLUTE COUNT (AUTO) 0.00 x10^3/uL; NUCLEATED RED BLOOD CELLS AUTO 0.0 /100WBC; PLT - PLATELET COUNT 171 10^3/uL (130-450); RED CELL DISTRIBUTION WIDTH 13.2 % (12.0-15.0)
[2025-04-26 05:13] LABS: BUN - BLOOD UREA NITROGEN 17.0 mg/dL (6-20); CARBON DIOXIDE - CO2 20.0 mmol/L (21-32); CREATININE 0.7 mg/dL (0.6-1.3); GFR - MDRD 83.0 (>89)
[2025-04-26] MEDS: POTASSIUM CHLORIDE 20 MEQ TABLET PO ONE (08:05)
--- NOTE | 2025-04-26 11:10 | PROVIDER PROGRESS NOTE ---
Subjective Prog Note Date Prog Note Date: 04/26/25 Subjective Pt reports feeling: Improved Current Medications Current Medications Current Medications: Current Medications Generic Name Dose Route Start Last Admin Trade Name Freq PRN Reason Stop Dose Admin Acetaminophen 650 mg 04/23/25 16:25 04/25/25 16:56 Acetaminophen 325 Mg Tablet PO 650 mg Q4HR PRN Administration Pain 1 to 4, or Fever Atorvastatin Calcium 20 mg 04/24/25 21:00 04/25/25 20:56 Atorvastatin 10 Mg Tablet PO 20 mg QPM ZOE Administration Enoxaparin Sodium 40 mg 04/25/25 09:00 04/26/25 08:05 Enoxaparin 40 Mg/0.4 Ml Syringe SUBQ 40 mg DAILY ZOE Administration Hydromorphone HCl 0.5 mg 04/23/25 16:25 Hydromorphone 0.5 Mg/0.5 Ml Syringe IVP Q2H PRN Pain 8 to 10 Sodium Chloride 1,000 mls @ 100 mls/hr 04/23/25 16:25 04/26/25 08:24 Normal Saline 0.9% IV 0 mls/hr .Q10H ZOE Infusion Ibuprofen 400 mg 04/23/25 20:58 04/25/25 17:42 Ibuprofen 400 Mg Tablet PO 400 mg Q6HR PRN Administration FEVER > 100.5 F Insulin Glargine-yfgn 10 unit 04/23/25 21:00 04/25/25 20:56 Insulin Glargine-Yfgn 300 Unit/3 Ml Pen SUBQ 10 unit QPM ZOE Administration Insulin Human Lispro 1 - 9 unit 04/25/25 17:00 04/26/25 08:05 Insulin Lispro 300 Unit/3 Ml Pen SUBQ Not Given 0800,1200,1700,2100 [facility] Protocol Levothyroxine Sodium 88 mcg 04/25/25 07:00 04/26/25 06:41 Levothyroxine 88 Mcg Tablet PO 88 mcg QDAC ZOE Administration Lisinopril 40 mg 04/27/25 09:00 Lisinopril 20 Mg Tablet PO DAILY ZOE Meropenem 1 gm 04/25/25 14:42 04/26/25 06:41 Meropenem 1 Gm Vial IVP 1 gm Q8H ZOE Administration Oxycodone HCl 5 mg 04/23/25 16:25 04/23/25 19:51 Oxycodone 5 Mg Tablet PO 5 mg Q4HR PRN Administration Pain 5 to 7 Polyethylene Glycol 17 gm 04/25/25 09:00 04/26/25 08:06 Polyethylene Glycol 3350 17 Gm Packet PO Not Given DAILY ZOE Prochlorperazine Edisylate 10 mg 04/23/25 16:25 04/24/25 20:24 Prochlorperazine 10 Mg/2 Ml Vial IVP 10 mg Q6HR PRN Administration Nausea / Vomiting Sodium Chloride 10 ml 04/23/25 17:00 04/26/25 00:22 Sodium Chloride Flush 0.9% 10 Ml Syringe IVP Not Given 0100,0900,1700 ZOE Sodium Chloride 10 ml 04/23/25 16:25 04/23/25 19:52 Sodium Chloride Flush 0.9% 10 Ml Syringe IVP 10 ml PRN PRN Administration NEEDED PER PROVIDER ORDERS Sterile Water 20 ml 04/23/25 16:30 04/26/25 06:41 Water For Injection,Sterile 10 Ml Vial MC 20 ml Q12H ZOE Administration Objective Vital Signs/Intake & Output Reviewed Vital Signs: Yes Vital Signs: Vital Signs x48h Temp Pulse Resp BP Pulse Ox 04/26/25 08:07 36.7 C 86 26 H 155/87 H 96 04/26/25 04:02 36.8 C 67 18 128/68 99 Intake & Output: Intake & Output 04/23/25 04/24/25 04/25/25 04/26/25 23:59 23:59 23:59 23:59 Intake Total 2500 / 2500 3761 / 3761 3120 / 3120 1837 / 1837 Output Total 865 / 865 1371 / 1371 1407 / 1407 675 / 675 Balance 1635 / 1635 2390 / 2390 1713 / 1713 1162 / 1162 Weight (kg) 70 kg 69 kg 70 kg 67 kg Objective General Appearance: positive No acute distress and Alert Eyes Bilateral: positive Normal inspection ENT: positive ENT inspection nml Neck: positive Nml inspection Respiratory: positive No respiratory distress and Breath sounds nml Cardiovascular: positive Regular rate & rhythm Abdomen: positive Non-tender and No distention Back: positive Nml inspection Skin: positive Color nml Extremities: positive Non-tender and No pedal edema Neurologic/Psychiatric: positive Oriented x3 Lab Results 04/26/25 04:25 04/26/25 04:25 Other Labs: Lab Results x24hrs 04/26/25 04/26/25 04/25/25 Range/Units 08:00 04:25 20:34 WBC 5.0 (4.8-10.8) x10^3/uL RBC 3.50 L (4.20-5.40) 10^6/uL Hgb 10.3 L (12.0-16.0) g/dL Hct 31.3 L (37.0-47.0) % MCV 89.4 (81.0-99.0) fL MCH 29.4 (27.0-31.0) pg MCHC 32.9 (32.0-36.0) g/dL RDW 13.2 (12.0-15.0) % Plt Count 171 (130-450) 10^3/uL MPV 10.4 (7.9-10.8) fL Neut # (Auto) 3.1 (1.5-6.6) 10^3/uL Lymph # (Auto) 1.4 L (1.5-3.5) 10^3/uL Schuyler # (Auto) 0.4 (0.0-1.0) 10^3/uL Eos # (Auto) 0.1 (0.0-0.7) 10^3/uL Baso # (Auto) 0.0 (0.0-0.1) 10^3/uL Absolute Nucleated RBC 0.00 x10^3/uL Nucleated RBC % 0.0 /100WBC Sodium 138 (135-145) mmol/L Potassium 3.3 L (3.5-4.5) mmol/L Chloride 111 (101-111) mmol/L Carbon Dioxide 20 L (21-32) mmol/L Anion Gap 7.0 (6-13) BUN 17 (6-20) mg/dL Creatinine 0.7 (0.6-1.3) mg/dL Estimated GFR (MDRD) 83 L (>89) Glucose 138 H (74-104) mg/dL POC Whole Bld Glucose 136 182 (70-100) mg/dL Calcium 7.8 L (8.5-10.3) mg/dL 04/25/25 04/25/25 Range/Units 16:47 11:39 WBC (4.8-10.8) x10^3/uL RBC (4.20-5.40) 10^6/uL Hgb (12.0-16.0) g/dL Hct (37.0-47.0) % MCV (81.0-99.0) fL MCH (27.0-31.0) pg MCHC (32.0-36.0) g/dL RDW (12.0-15.0) % Plt Count (130-450) 10^3/uL MPV (7.9-10.8) fL Neut # (Auto) (1.5-6.6) 10^3/uL Lymph # (Auto) (1.5-3.5) 10^3/uL Schuyler # (Auto) (0.0-1.0) 10^3/uL Eos # (Auto) (0.0-0.7) 10^3/uL Baso # (Auto) (0.0-0.1) 10^3/uL Absolute Nucleated RBC x10^3/uL Nucleated RBC % /100WBC Sodium (135-145) mmol/L Potassium (3.5-4.5) mmol/L Chloride (101-111) mmol/L Carbon Dioxide (21-32) mmol/L Anion Gap (6-13) BUN (6-20) mg/dL Creatinine (0.6-1.3) mg/dL Estimated GFR (MDRD) (>89) Glucose (74-104) mg/dL POC Whole Bld Glucose 241 281 (70-100) mg/dL Calcium (8.5-10.3) mg/dL Other Results/Comments Other Results/Comments: Urine cultures positive for pansensitive E. coli, blood cultures positive for ESBL Sepsis Event Note (H) Evaluation Current Stage of Sepsis: Sepsis Possible source of Sepsis: positive Genitourinary Sepsis Criteria Sepsis Criteria: Recorded Temperature greater than 38.3C or Less than 36C and MAP less than 65 mmHg Assessment/Plan Problem List (1) Sepsis: Impression: Met sepsis criteria with elevated WBC, fever, tachycardia This is due to urinary source Urine cultures positive for E. coli, blood cultures positive for ESBL She has been in the ICU for septic shock requiring intermittent Levophed She is still having intermittent fevers Her WBC has improved to normal Continue meropenem, Today is day 3 Although some sources suggest that gram-negative bacteremia can be transition to p.o. early, patient is still having fevers and hypotension. Anticipate maintaining on Merrem for 7-day total course and then likely transition to oral for an additional 7 days 04/26: Had fevers yesterday afternoon. Hypotension has resolved, restarting home antihypertensives slowly. She had 20 mg lisinopril today and this will be up to 40 mg starting tomorrow. Will need 7-day total course of carbapenem therapy (2) Pyelonephritis: Impression: Antibiotics as above (3) Acute kidney injury: Impression: Resolved, continue daily BMP (4) Type 2 diabetes mellitus with other specified complication: Impression: A1c 9.1 Managed with glipizide and metformin at home She is having somewhat better control with 10 units Lantus at night, but is still having high sugars during the day Discussing possibility of additional insulin with nutrition services. Depending on what her glucose does during the day, may add small dose of a.m. Lantus Qualifiers: Diabetes mellitus senior care insulin use: without senior care use Q ualified Code(s): E11.69 - Type 2 diabetes mellitus with other specified complication (5) Essential hypertension: Impression: Off Levophed since 3 AM on 04/25. Now hypertensive. Exercising caution and restarting antihypertensives as she is just now recovering from septic shock. She takes 40 mg of lisinopril as well as 25 mg of hydrochlorothiazide at home. She received 20 mg lisinopril today, this will increase to 40 mg tomorrow. (6) Hypothyroid: Impression: home meds restarted. Qualifiers: Hypothyroidism type: acquired Qualified Code(s): E03.9 - Hypothyroidism, unspecified (7) Hyperlipemia: Impression: home meds restarted. Qualifiers: Hyperlipidemia type: mixed hyperlipidemia Qualified Code(s): E78.2 - Mixed hyperlipidemia
[2025-04-27] MEDS: ONDANSETRON 4 MG/2 ML VIAL IVP PRN (02:18)
[2025-04-27 05:37] LABS: HCT - HEMATOCRIT 29.1 % (37.0-47.0); HGB - HEMOGLOBIN 9.8 g/dL (12.0-16.0); MEAN PLATELET VOLUME 10.0 fL (7.9-10.8); NRBC ABSOLUTE COUNT (AUTO) 0.00 x10^3/uL; NUCLEATED RED BLOOD CELLS AUTO 0.0 /100WBC; PLT - PLATELET COUNT 198 10^3/uL (130-450); RED CELL DISTRIBUTION WIDTH 12.7 % (12.0-15.0)
[2025-04-27 05:55] LABS: BUN - BLOOD UREA NITROGEN 10.0 mg/dL (6-20); CARBON DIOXIDE - CO2 23.0 mmol/L (21-32); CREATININE 0.6 mg/dL (0.6-1.3); GFR - MDRD 99.0 (>89)
[2025-04-27 11:39] VITALS: BP 141/75; TEMP 97.7; O2SAT 97
--- NOTE | 2025-04-27 14:02 | Discharge Summary ---
Discharge Summary Admit Date: 04/23/25 Discharge Date: 04/27/25 Discharging Provider: Craig Knight Primary Care Provider: Leticia Piedra Code Status: Attempt Resuscitation DIAGNOSES Admission Diagnoses: Sepsis Pyelonephritis KATHY Diabetes Hypertension Hypothyroid Hyperlipidemia Discharge Diagnoses with Status of Each Condition: Sepsisresolved Pyelonephritison antibiotics AKIresolved Diabeteschronic Hypertensionchronic Hypothyroidchronic Hyperlipidemiachronic HPI History of Present Illness: 69F with PMHx DM, HTN , UTI presents to the ED with complaints of feeling bad. Fever, nausea, vomiting, flank pain bilaterally and dysuria. She has been feeling sick for at least 4 days. Since arriving in the ED has been febrile severeal hours into her course. has been given tylenol and tordol, still with elevated temp. HOSPITAL COURSE Hospital Course: Patient was admitted into the hospital and started on IV antibiotics. Blood cultures showed that she was growing ESBL, so her antibiotic regimen was escalated to meropenem. She had fevers off and on through the evening of the . She is now afebrile for greater than 24 hours, her leukocytosis has resolved, and she is stable for discharge to swing bed status. She is being transition to swing bed so that she can complete a 7-day course of carbapenem therapy ALLERGIES Allergies Allergy/AdvReac Type Severity Reaction Status Date / Time No Known Drug Allergies Allergy Verified 04/23/25 10:52 MEDICATIONS Ambulatory Orders Medication Instructions Recorded Confirmed glipizide 5 mg tablet 5 mg PO BID Diabetes #180 ta bs 10/11/24 04/23/25 hydrochlorothiazide 25 mg tablet 25 mg PO QAM #90 tabs 10/17/24 04/23/25 lisinopril 40 mg tablet See Rx Instructions .Route 0 10/17/24 04/23/25 .COMPLEX #90 tabs glipizide 2.5 mg tablet 2.5 mg PO BID Diabetes #180 tabs 01/10/25 04/23/25 levothyroxine 88 mcg tablet 88 mcg PO QDAC 04/23/25 (Levoxyl) metformin 1,000 mg tablet 1,000 mg PO DAILY 04/23/25 0 04/23/25 rosuvastatin 10 mg tablet 10 mg PO DAILY high choleste rol 04/23/25 04/23/25 PHYSICAL EXAM AT DISCHARGE Vital Signs: Vital Signs x48h Temp Pulse Resp BP Pulse Ox 04/27/25 11:37 36.5 C 75 18 141/75 H 97 04/27/25 07:51 36.6 C 72 18 140/71 H 96 General Appearance: positive No acute distress and Alert Eyes Bilateral: positive Normal inspection and PERRL ENT: positive ENT inspection nml Respiratory: positive Chest non-tender and No respiratory distress Cardiovascular: positive Regular rate & rhythm Peripheral Pulses: positive 2+ Abdomen: positive Non-tender Rectal: positive Non-tender Back: positive Nml inspection Skin: positive Color nml Extremities: positive Non-tender Neurologic/Psychiatric: positive Oriented x3 LABS 04/27/25 04:53 04/27/25 04:53 SEPSIS Current Stage of Sepsis: Resolved Possible source of Sepsis: Genitourinary Sepsis Criteria: Recorded Temperature greater than 38.3C or Less than 36C and MAP less than 65 mmHg FOLLOW UP Follow Up: Transitioning to swing bed status TIME SPENT Time Spent in Discharge (Minutes): 37 Discharge Plan Discharge Patient Disposition: 61 Swing Bed DC/Xfer Condition: Serious Print Language: Slovenian Vitals documented within 30 minutes of discharge?: Yes
== END 2025-04-27 16:06 | disposition swing bed (61) | DRG 872 ==
LOC: ED 10:34 → ICU 15:43 → MS3 04-26 15:49
PROVIDERS: ADMIT Physician Assistant Medical; ATTEND Physician Assistant Medical
DX: E78.2 Mixed hyperlipidemia; E03.9 Hypothyroidism, unspecified; Z79.84 Long term (current) use of oral hypoglycemic drugs; N12 Tubulo-interstitial nephritis, not specified as acute or chronic; I95.9 Hypotension, unspecified; I10 Essential (primary) hypertension; E11.9 Type 2 diabetes mellitus without complications; A41.9 Sepsis, unspecified organism; R65.20 Severe sepsis without septic shock; A41.51 Sepsis due to Escherichia coli [E. coli]; N17.9 Acute kidney failure, unspecified; E11.69 Type 2 diabetes mellitus with other specified complication; Z79.899 Other long term (current) drug therapy; Z79.890 Hormone replacement therapy; Z11.52 Encounter for screening for COVID-19